=== PATIENT | male | born 1995 | race Caucasian/White ===

== ENCOUNTER 2019-02-21 08:02 | Emergency (ER) | payer OTHER ==
[2019-02-21] MEDS: KETOROLAC 30 MG INJ IM (08:39)
== END 2019-02-21 10:27 | disposition home or self-care (01) ==
LOC: FTE 08:02
DX: S40.011A Contusion of right shoulder, initial encounter (principal); W18.39XA Other fall on same level, initial encounter; Y92.321 Football field as the place of occurrence of the external cause
CPT/HCPCS: 73030; 73030-RT; 96372; 99284-25